=== PATIENT | male | born 1965 | race Caucasian/White ===

== ENCOUNTER 2016-04-21 18:29 | Emergency (ER) | payer SELFPAY ==
[~2016-04-21] VITALS: Ht 177.8 cm; Wt 68.0 kg
[~2016-04-21 18:29] MED LIST: AMOX500T PO; MMW SWISH-SWAL; MOBI7.5T PO; TYLE3 PO
[2016-04-21 18:30] VITALS: BP 190/93; PULSE 86; RESP 15; TEMP 98.2; O2SAT 95
[2016-05-02] MEDS ORDERED: GLIP5TAB8 PO ×2 (12:30→12:31)
[2016-05-02] MEDS ORDERED: CARB6.5S5 LEFT EAR (12:34)
[2016-05-02] MEDS ORDERED: METF1000 PO (12:38)
== END 2016-04-22 02:00 | disposition left against medical advice (07) ==
LOC: NED 18:29
DX: R10.30 Lower abdominal pain, unspecified (principal)
CPT/HCPCS: 99281

== ENCOUNTER 2016-04-22 03:01 | Inpatient (IN) | payer SELFPAY ==
[~2016-04-22] VITALS: Ht 177.8 cm; Wt 64.3 kg
[2016-04-22] VITALS (7 sets, daily range): BP systolic 142–158; BP diastolic 74–87; PULSE 78–93; RESP 17–20; TEMP 97.6–98.7; O2SAT 93–99
[2016-04-22] MEDS ORDERED: SODIUM CHLOR 0.9% 1000 ML INJ 1,000 ML IV SCH (06:33)
--- NOTE | 2016-04-22 06:41 | PD ---
HPI Chief Complaint: Lump, Cyst, Hernia Time Seen by Provider: 06:24 Travel History International Travel<30 days: No Contact w/Intl Traveler<30days: No Traveled to known affect area: No History of Present Illness HPI Patient is a 50-year-old male who presents to emergency room with complaints of left-sided inguinal pain as well as left-sided testicular pain. 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 Patient reports that he has been having increased pain to his left groin. Patient reports that he noticed a bulge to his left groin on Sunday, reports that the bulge is getting bigger in size, reports that it hurts to walk hurts to move with this pain. Patient also reports that his left testicle appears to be growing in size as well. Patient denies any other trauma other than lifting heavy objects. PFSH Past Medical History Diminished Hearing: No Social History Alcohol Use: Yes (OCC) Tobacco Use: Yes (1 PPD ) Substance Use: No Allergies-Medications (Allergen,Severity, Reaction): Coded Allergies: No Known Allergies (Unverified , 09/16/15) Reported Meds & Prescriptions Reported Meds & Active Scripts Active Mobic (Meloxicam) 7.5 Mg Tab 7.5 Mg PO BID Magic Mouthwash-Diphenhy Formula (Lidocaine/Diphenhydr/Alum/Mg/Simeth) Ml 10 Ml SWISH-SWAL Q2HR MAGIC MOUTHWASH CONTAINS 1/3 VISCOUS LIDOCAINE,1/3 MAALOX, AND 1/3 BENADRYL. Reported Amoxil (Amoxicillin) 500 Mg Tab 500 Mg PO BID Tylenol #3 (Acetaminophen/Codeine Phosphate) Acetaminophen 300/30 Codeine Tab 1 Tab PO Q4H PRN FOR PAIN Review of Systems Genitourinary: Positive: Other (groin pain, left sided testicular pain) Physical Exam Narrative GENERAL: nad, nontoxic SKIN: Warm and dry. HEAD: Atraumatic. Normocephalic. EYES: Pupils equal and round. No scleral icterus. No injection or drainage. ENT: No nasal bleeding or discharge. Mucous membranes pink and moist. NECK: Trachea midline. No JVD. CARDIOVASCULAR: Regular rate and rhythm. No murmur appreciated. RESPIRATORY: No accessory muscle use. Clear to auscultation. Breath sounds equal bilaterally. GASTROINTESTINAL: Abdomen soft, non-tender, nondistended. Hepatic and splenic margins not palpable. pt with nonreducible left sided inguinal hernia : pt with tenderness and swelling to left testicle, cremasteric reflex normal b/l, exam performed with RN Sean at bedside MUSCULOSKELETAL: No obvious deformities. No clubbing. No cyanosis. No edema. NEUROLOGICAL: Awake and alert. No obvious cranial nerve deficits. Motor grossly within normal limits. Normal speech. PSYCHIATRIC: Appropriate mood and affect; insight and judgment normal. Data Data Last Documented VS Vital Signs Date Time Temp Pulse Resp B/P Pulse Ox O2 Delivery O2 Flow Rate FiO2 04/22/16 04:50 78 18 04/22/16 03:02 98.7 151/79 99 Orders Complete Blood Count With Diff (04/22/16 06:33) Comprehensive Metabolic Panel (04/22/16 06:33) Prothrombin Time / Inr (Pt) (04/22/16 06:33) Act Partial Throm Time (Ptt) (04/22/16 06:33) Urinalysis - C+S If Indicated (04/22/16 06:33) Ct Abd/Pel W Iv Contrast(Rout) (04/22/16 06:33) Iv Access Insert/Monitor (04/22/16 06:33) Oximetry (04/22/16 06:33) Morphine Inj (Morphine Inj) (04/22/16 06:45) Ondansetron Inj (Zofran Inj) (04/22/16 06:45) Sodium Chlor 0.9% 1000 Ml Inj (Ns 1000 M (04/22/16 06:33) Sodium Chloride 0.9% Flush (Ns Flush) (04/22/16 06:45) Us Testicles W Doppler (04/22/16 ) Urine Culture (04/22/16 06:50) Sodium Chlor 0.9% 1000 Ml Inj (Ns 1000 M (04/22/16 08:00) Labs Laboratory Tests Test 04/22/16 06:50 White Blood Count 22.9 TH/MM3 Red Blood Count 4.77 MIL/MM3 Hemoglobin 14.3 GM/DL Hematocrit 41.3 % Mean Corpuscular Volume 86.7 FL Mean Corpuscular Hemoglobin 29.9 PG Mean Corpuscular Hemoglobin 34.5 % Concent Red Cell Distribution Width 14.0 % Platelet Count 265 TH/MM3 Mean Platelet Volume 9.2 FL Neutrophils (%) (Auto) 81.7 % Lymphocytes (%) (Auto) 8.6 % Monocytes (%) (Auto) 7.8 % Eosinophils (%) (Auto) 0.9 % Basophils (%) (Auto) 1.0 % Neutrophils # (Auto) 18.7 TH/MM3 Lymphocytes # (Auto) 2.0 TH/MM3 Monocytes # (Auto) 1.8 TH/MM3 Eosinophils # (Auto) 0.2 TH/MM3 Basophils # (Auto) 0.2 TH/MM3 CBC Comment DIFF FINAL Differential Comment Prothrombin Time 10.5 SEC Prothromb Time International 1.0 RATIO Ratio Activated Partial 34.0 SEC Thromboplast Time Urine Color YELLOW Urine Turbidity HAZY Urine pH 6.0 Urine Specific [place] 1.016 Urine Protein 300 mg/dL Urine Glucose (UA) 1000 mg/dL Urine Ketones 40 mg/dL Urine Occult Blood MOD Urine Nitrite NEG Urine Bilirubin NEG Urine Urobilinogen LESS THAN 2.0 MG/DL Urine Leukocyte Esterase LARGE Urine RBC 12 /hpf Urine WBC 181 /hpf Urine WBC Clumps FEW Urine Squamous Epithelial <1 /hpf Cells Urine Bacteria FEW /hpf Urine Hyaline Casts 1 /lpf Urine Mucus FEW /lpf Microscopic Urinalysis Comment CULTURE INDICATED Sodium Level 133 MEQ/L Potassium Level 4.0 MEQ/L Chloride Level 99 MEQ/L Carbon Dioxide Level 23.9 MEQ/L Anion Gap 10 MEQ/L Blood Urea Nitrogen 15 MG/DL Creatinine 1.20 MG/DL Estimat Glomerular Filtration 64 ML/MIN Rate Random Glucose 231 MG/DL Calcium Level 9.2 MG/DL Total Bilirubin 0.4 MG/DL Aspartate Amino Transf 9 U/L (AST/SGOT) Alanine Aminotransferase 15 U/L (ALT/SGPT) Alkaline Phosphatase 171 U/L Total Protein 7.3 GM/DL Albumin 2.4 GM/DL MDM Medical Decision Making Medical Screen Exam Complete: Yes Emergency Medical Condition: Yes Interpretation(s) Vital Signs Date Time Temp Pulse Resp B/P Pulse Ox O2 Delivery O2 Flow Rate FiO2 04/22/16 04:50 78 18 04/22/16 03:02 98.7 90 17 151/79 99 Differential Diagnosis Incarcerated inguinal hernia, testicular torsion, epididymitis Narrative Course Patient is a 50-year-old male who presents to ER with c/o of left sided groin pain since sunday. pt with left sided inguinal hernia - unable to reduce this hernia at bedside. iv ordered as well as iv pain meds. will try to reduce hernia once pt medicated. ct ordered to evaluate hernia. pt also with left sided testicular pain and swelling, testicular US ordered pt with wbc 22.9, lactate, bc and antibiotics ordered for pt Beth Hensley DO Apr 22, 2016 06:41
[2016-04-22] MEDS ORDERED: MORPHINE SULFATE 4 MG/ML INJ IV PUSH ONE (06:45)
[2016-04-22] MEDS ORDERED: ONDANSETRON HCL 4 MG/2 ML VIAL IVP ONE (06:45)
[2016-04-22] MEDS ORDERED: SODIUM CHLORIDE 0.9% FLUSH 5 ML FLUSH IVF PRN (06:45)
[2016-04-22 07:24] LABS: AUTOMATED NEUTROPHIL # 18.7 TH/MM3 (1.8-7.7); BASOPHIL # 0.2 TH/MM3 (0-0.2); EOSINOPHIL # 0.2 TH/MM3 (0-0.4); EOSINOPHIL % 0.9 % (0.0-4.0); HEMATOCRIT 41.3 % (39.0-51.0); HEMO FLAGS DIFF FINAL; LYMPH % 8.6 % (9.0-44.0); MEAN CELL VOLUME 86.7 FL (80.0-100.0); MEAN CORPUSCULAR HEMOGLOBIN 29.9 PG (27.0-34.0); MEAN CORPUSCULAR HGB CONC 34.5 % (32.0-36.0); MONO % 7.8 % (0.0-8.0); NEUT % 81.7 % (16.0-70.0); PLATELET COUNT 265 TH/MM3 (150-450); RED BLOOD COUNT 4.77 MIL/MM3 (4.50-5.90); WHITE BLOOD COUNT 22.9 TH/MM3 (4.0-11.0)
[2016-04-22 07:30] LABS: PROTHROMBIN TIME - PATIENT 10.5 SEC (9.8-11.6)
[2016-04-22 07:35] LABS: ALT (GPT) 15 U/L (12-78); ANION GAP 10 MEQ/L (5-15); AST (GOT) 9 U/L (15-37); BICARBONATE 23.9 MEQ/L (21.0-32.0); BLOOD UREA NITROGEN 15 MG/DL (7-18); CHLORIDE 99 MEQ/L (98-107); GLOMERULAR FILTRATION RATE 64 ML/MIN (>89); SODIUM (NA) 133 MEQ/L (136-145)
[2016-04-22 07:36] LABS: ALKALINE PHOSPHATASE 171 U/L (45-117); TOTAL BILIRUBIN ADULT 0.4 MG/DL (0.2-1.0)
[2016-04-22 07:41] LABS: BACTERIA, URINE FEW /hpf; BLOOD, URINE MOD (NEG); COMMENT (UR) CULTURE INDICATED; CULTURE IF INDICATED CULTURE INDICATED; GLUCOSE,URINE 1000 mg/dL (NEG); HYALINE CAST, URINE 1 /lpf (RARE); KETONE, URINE 40 mg/dL (NEG); MUCUS URINE FEW /lpf (OCC); NITRITE,URINE NEG (NEG); SQUAMOUS EPITHELIAL CELL URINE <1 /hpf (0-5); URINE COLOR YELLOW (YELLW/STRAW)
[2016-04-22] MEDS ORDERED: PIPERACIL-TAZO 3.375 GM PREMIX 50 ML IV ONE (08:00)
[2016-04-22] MEDS ORDERED: VANCOMYCIN INJ 1,000 MG in SODIUM CHLOR 0.9% 250 ML INJ 250 ML IV ONE (08:00)
[2016-04-22] MEDS ORDERED: SODIUM CHLOR 0.9% 1000 ML INJ 1,000 ML IV ONE (08:00)
[2016-04-22] MEDS ORDERED: IOHEXOL 350 MG/ML 10 ML VIAL (for RAD DIAG) IV ONE (08:33)
--- NOTE | 2016-04-22 09:03 | RADRPT ---
EXAM DATE/TIME: 04/22/2016 08:15 [facility] COMPARISON: No previous studies available for comparison. INDICATIONS : Abdomen pain into feft groin; evaluate for hernia. IV CONTRAST: 100 cc Omnipaque 350 (iohexol) IV ORAL CONTRAST: No oral contrast ingested. RADIATION DOSE: 9.96 CTDIvol (mGy) MEDICAL HISTORY : None SURGICAL HISTORY : None. ENCOUNTER: Initial ACUITY: 1 day PAIN SCALE: 6/10 LOCATION: Left abdomen. TECHNIQUE: Volumetric scanning of the abdomen and pelvis was performed. Using automated exposure control and ad justment of the mA and/or kV according to patient size, radiation dose was kept as low as reasonably achievable to obtain optimal diagnostic quality images. FINDINGS: Lung base is are clear. The liver, spleen, pancreas and adrenal glands are unremarkable. There is symmetrical renal function without renal mass. Region of the cecum and terminal ileum unremarkable. There some mild inflammatory changes in the sigmoid colon and appears to be associated with some dive rticuli. Small left inguinal hernia containing only fat. The left seminal vesicle is prominent. There is minimal soft tissue base of the bladder left side, n onspecific. Small bilateral hydroceles are noted. Review of bone windows reveals only degenerative changes. CONCLUSION: 1. Probable minimal diverticulitis sigmoid colon associate with small inguinal hernia. 2. Prominent left seminal vesicle. 3. Small bilateral hydroceles. Giovanny Glass MD FACR on April 22, 2016 at 8:57 Board Certified Radiologist. This report was verified electronically.
--- NOTE | 2016-04-22 09:13 | PD ---
Data Data Last Documented VS Vital Signs Date Time Temp Pulse Resp B/P Pulse Ox O2 Delivery O2 Flow Rate FiO2 04/22/16 07:06 20 04/22/16 04:50 78 04/22/16 03:02 98.7 151/79 99 Orders Complete Blood Count With Diff (04/22/16 06:33) Comprehensive Metabolic Panel (04/22/16 06:33) Prothrombin Time / Inr (Pt) (04/22/16 06:33) Act Partial Throm Time (Ptt) (04/22/16 06:33) Urinalysis - C+S If Indicated (04/22/16 06:33) Ct Abd/Pel W Iv Contrast(Rout) (04/22/16 06:33) Iv Access Insert/Monitor (04/22/16 06:33) Oximetry (04/22/16 06:33) Morphine Inj (Morphine Inj) (04/22/16 06:45) Ondansetron Inj (Zofran Inj) (04/22/16 06:45) Sodium Chlor 0.9% 1000 Ml Inj (Ns 1000 M (04/22/16 06:33) Sodium Chloride 0.9% Flush (Ns Flush) (04/22/16 06:45) Us Testicles W Doppler (04/22/16 ) Urine Culture (04/22/16 06:50) Sodium Chlor 0.9% 1000 Ml Inj (Ns 1000 M (04/22/16 08:00) Lactic Acid Sepsis Protocol (04/22/16 07:56) Blood Culture (04/22/16 07:56) Piperacil-Tazo 3.375 Gm Premix (Zosyn 3. (04/22/16 08:00) Vancomycin Inj (Vancomycin Inj) (04/22/16 08:00) Iohexol 350 Inj (Omnipaque 350 Inj) (04/22/16 08:33) Diet Regular Basic (04/22/16 Breakfast) Hydromorphone Pf Inj (Dilaudid Pf Inj) (04/22/16 09:45) Admit Order (Ed Use Only) (04/22/16 09:56) Labs Laboratory Tests Test 04/22/16 04/22/16 06:50 08:45 White Blood Count 22.9 TH/MM3 Red Blood Count 4.77 MIL/MM3 Hemoglobin 14.3 GM/DL Hematocrit 41.3 % Mean Corpuscular Volume 86.7 FL Mean Corpuscular Hemoglobin 29.9 PG Mean Corpuscular Hemoglobin 34.5 % Concent Red Cell Distribution Width 14.0 % Platelet Count 265 TH/MM3 Mean Platelet Volume 9.2 FL Neutrophils (%) (Auto) 81.7 % Lymphocytes (%) (Auto) 8.6 % Monocytes (%) (Auto) 7.8 % Eosinophils (%) (Auto) 0.9 % Basophils (%) (Auto) 1.0 % Neutrophils # (Auto) 18.7 TH/MM3 Lymphocytes # (Auto) 2.0 TH/MM3 Monocytes # (Auto) 1.8 TH/MM3 Eosinophils # (Auto) 0.2 TH/MM3 Basophils # (Auto) 0.2 TH/MM3 CBC Comment DIFF FINAL Differential Comment Prothrombin Time 10.5 SEC Prothromb Time International 1.0 RATIO Ratio Activated Partial 34.0 SEC Thromboplast Time Urine Color YELLOW Urine Turbidity HAZY Urine pH 6.0 Urine Specific [place] 1.016 Urine Protein 300 mg/dL Urine Glucose (UA) 1000 mg/dL Urine Ketones 40 mg/dL Urine Occult Blood MOD Urine Nitrite NEG Urine Bilirubin NEG Urine Urobilinogen LESS THAN 2.0 MG/DL Urine Leukocyte Esterase LARGE Urine RBC 12 /hpf Urine WBC 181 /hpf Urine WBC Clumps FEW Urine Squamous Epithelial <1 /hpf Cells Urine Bacteria FEW /hpf Urine Hyaline Casts 1 /lpf Urine Mucus FEW /lpf Microscopic Urinalysis Comment CULTURE INDICATED Sodium Level 133 MEQ/L Potassium Level 4.0 MEQ/L Chloride Level 99 MEQ/L Carbon Dioxide Level 23.9 MEQ/L Anion Gap 10 MEQ/L Blood Urea Nitrogen 15 MG/DL Creatinine 1.20 MG/DL Estimat Glomerular Filtration 64 ML/MIN Rate Random Glucose 231 MG/DL Calcium Level 9.2 MG/DL Total Bilirubin 0.4 MG/DL Aspartate Amino Transf 9 U/L (AST/SGOT) Alanine Aminotransferase 15 U/L (ALT/SGPT) Alkaline Phosphatase 171 U/L Total Protein 7.3 GM/DL Albumin 2.4 GM/DL Lactic Acid Level 0.8 mmol/L [facility] Supervised Visit with PACO: No Narrative Course Patient signed out to me by previous provider. Please see associated note for further details. In short patient is a 50-year-old male who complains of left- sided inguinal pain, abdominal pain, testicular pain. 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 This has increased in size, hurts to move and radiates into the abdomen and testicle. Per previous provider , patient has a fair amount of tenderness to palpation in the left groin with palpable hernia that she did not feel she successfully reduced. Concern for incarcerated hernia. Per previous provider patient's laboratory workup with CBC , CMP, coags, urinalysis notable for leukocytosis 22.9. Urinalysis with large leukocyte Estrace, 181 white cells with white cell clumps. Patient was treated per previous provider with vancomycin, Zosyn. Given patient's leukocytosis, lactate and cultures were ordered as well. 1 L normal saline bolus and signed out to me pending CT abdomen and pelvis and ultrasound of the testis. CT abdomen and pelvis didn't not show any evidence of incarcerated hernia. Patient's hernia containing fat only. There is diverticulitis of the sigmoid colon associated with a small inguinal hernia. Prominent left seminal vesicle. Small bilateral hydroceles. Radiology does not comment on radiographic evidence of pyelonephritis, stating that there is symmetrical renal function without mass. Lactate normal. Testicular ultrasound showed complex hydrocele on the left with a varicocele. Mild hyperemia on the left as well. Knowing the hyperemia, tenderness to palpation, and left-sided testicular pain I suspect there may be a component of epididymal orchitis because of his urinalysis. Patient still quite uncomfortable on examination, requiring repeat narcotics. Patient will be admitted for further IV antibiotics. Sepsis Criteria SIRS Criteria (2 or more): WBC > 71316, < 4000 or > 10% bands Sepsis Criteria (SIRS+source): Infect source susp/known Diagnosis Primary Impression: Sigmoid diverticulitis Additional Impressions: Left inguinal hernia Leukocytosis Qualified Code: D72.829 - Leukocytosis, unspecified type Abdominal pain, left lower quadrant Epididymoorchitis Admitting Information Admitting Physician Requests: Admit Kristen Wallace MD Apr 22, 2016 09:13
--- NOTE | 2016-04-22 09:22 | RADRPT ---
EXAM DATE/TIME: 04/22/2016 07:10 [facility] COMPARISON: No previous studies available for comparison. INDICATIONS : Pain in left groin after heavy lifting. MEDICAL HISTORY : Groin pain. Joint pain. SURGICAL HISTORY : None. ENCOUNTER: Initial ACUITY: 4 - 6 days PAIN SCORE: 1/10 LOCATION: Left groin. MEASUREMENTS: RIGHT TESTICLE: 3.9 x 2.9 x 2.3cm LEFT TESTICLE: 3.6 x 3.3 x 2.3cm FINDINGS: RIGHT TESTICLE: Homogeneous echotexture without intra or extratesticular mass. Blood flow is symmetric and within no rmal limits. No hydrocele or varicocele. Epididymis is within normal limits. LEFT TESTICLE: There is mildly increased flow in the left testicle with several small epididymal cysts noted. There is minimal inhomogeneity to the left testicle in nonspecific fashion. There is prominent hydrocele present. Varicocele is noted. SCROTUM: Scrotum is thickened on the left with complex hydrocele. CONCLUSION: Complex hydrocele on the left with apparent varicocele. Mild hyperemia on the left a s well. Giovanny Glass MD FACR on April 22, 2016 at 9:15 Board Certified Radiologist. This report was verified electronically.
[2016-04-22] MEDS ORDERED: HYDROmorphone HCL PF 1 MG/ML VIAL IV PUSH ONE (09:45)
[2016-04-22] MEDS ORDERED: ZOLPIDEM TARTRATE 5 MG TAB PO PRN (10:15)
[2016-04-22] MEDS ORDERED: MORPHINE SULFATE 4 MG/ML INJ IV PRN (10:15)
[2016-04-22] MEDS ORDERED: SENNOSIDES 8.6 MG TAB PO PRN (10:15)
[2016-04-22] MEDS ORDERED: ONDANSETRON HCL 4 MG/2 ML VIAL IVP PRN (10:15)
[2016-04-22] MEDS ORDERED: SODIUM CHLORIDE 0.9% FLUSH 5 ML FLUSH FLUSH PRN (10:15)
[2016-04-22] MEDS ORDERED: NALOXONE HCL 0.4 MG/ML AMP IV PRN (10:15)
[2016-04-22] MEDS ORDERED: ACETAMINOPHEN 325 MG TAB PO PRN ×2 (10:15)
[2016-04-22] MEDS: DOCUSATE SODIUM 100 MG CAP PO SCH ×2 (11:08→21:21)
[2016-04-22] MEDS: SODIUM CHLOR 0.9% 1000 ML INJ 1,000 ML IV SCH ×2 (11:09→20:08)
[2016-04-22] MEDS: metroNIDAZOLE 500 MG INJ 100 ML IV SCH ×2 (12:35→17:09)
[2016-04-22] MEDS: CIPROFLOXACIN 400 MG PREMIX 200 ML IV SCH ×2 (13:16→23:09)
--- NOTE | 2016-04-22 14:32 | HHI.HP ---
[facility] Primary [facility] Physician No Primary Care Physician Admission Diagnosis epididymal orchitis, diverticulitis, abdominal pain Diagnoses: (1) Epididymoorchitis Diagnosis: Principal (2) Sigmoid diverticulitis Diagnosis: Principal Chief Complaint: Scrotal pain Travel History International Travel<30 Days: No Contact w/Intl Traveler <30 Da: No Traveled to Known Affected Are: No Sepsis Criteria SIRS Criteria (2 or more): WBC > 68062, < 4000 or > 10% bands Sepsis Criteria (SIRS+source): Infect source susp/known History of Present Illness The patient is a 50-year-old male who is presenting to the hospital with severe pain in the scrotal area. 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 He said that he noticed a bulge above his genital area. He also noticed that his left testicle became bigger and tender. He said it was quite painful. He thought that he got a hernia. He said he tried to go back to work but he had to take a few days off. The pain was rated as a 9 out of 10 in severity. Whenever he coughed the pain would be a lot worse. He tried coping with the pain by taking aspirin and Advil but that did not help relieve his symptoms. He has felt feverish at times. He denies any nausea or vomiting. He did notice that he lost his appetite. He denies any pain on urination or any blood in the urine. He has not traveled anywhere recently. He says he has not had any sexual activity in the past year. After receiving pain medications in the emergency department he rates his pain as a 6 out of 10 in severity. Review of Systems Constitutional: COMPLAINS OF: Fever, Change in appetite Respiratory: COMPLAINS OF: Cough Gastrointestinal: COMPLAINS OF: Vomiting, DENIES: Abdominal pain, Nausea Genitourinary: COMPLAINS OF: Testicular Pain, Testicular Swelling, DENIES: Hematuria, Dysuria Past Family Social History Past Medical History The patient denies any significant medical history. Past Surgical History The patient denies any surgery. Allergies: Coded Allergies: No Known Allergies (Unverified , 09/16/15) Active Ordered Medications Current Medications Medications (Trade) Dose Ordered Sig/Piero Route Start Time Stop Time Status Last Admin Ciprofloxacin/ Dextrose 200 ml @ 200 mls/hr Q12H IV 04/22/16 11:00 04/22/16 13:16 Metronidazole 100 ml @ 100 mls/hr Q8H IV 04/22/16 10:15 04/22/16 12:35 (NS 1000 ml Inj) 1,000 ml @ 100 mls/hr Q10H IV 04/22/16 10:08 04/22/16 11:09 (NS Flush) 2 ml UNSCH PRN FLUSH 04/22/16 10:15 (NS Flush) 2 ml BID FLUSH 04/22/16 21:00 (Tylenol) 650 mg Q4H PRN PO 04/22/16 10:15 (Zofran Inj) 4 mg Q6H PRN IVP 04/22/16 10:15 (Colace) 100 mg Q12H PO 04/22/16 10:15 04/22/16 11:08 (Senokot) 17.2 mg Q12H PRN PO 04/22/16 10:15 (Ambien) 5 mg HS PRN PO 04/22/16 10:15 (Tylenol) 650 mg Q6H PRN PO 04/22/16 10:15 (Roxicodone) 10 mg Q4H PRN PO 04/22/16 10:15 04/22/16 13:28 (Morphine Inj) 4 mg Q3H PRN IV 04/22/16 10:15 (Roxicodone) 5 mg Q4H PRN PO 04/22/16 10:15 (Narcan Inj) 0.4 mg UNSCH PRN IV 04/22/16 10:15 Family History The patient says cancer runs in his family. Social History The patient smoked one pack per day but quit this past New Year's. The patient says he drinks a couple of beers a day but since New Year's he has been working on cutting that down. He denies any illicit drug use. Physical Exam Vital Signs Vital Signs Date Time Temp Pulse Resp B/P Pulse Ox O2 Delivery O2 Flow Rate FiO2 04/22/16 10:13 82 20 148/74 98 Room Air 04/22/16 07:06 20 04/22/16 07:00 82 20 142/78 98 Room Air 04/22/16 07:00 20 93 Room Air 04/22/16 04:50 78 18 04/22/16 03:02 98.7 90 17 151/79 99 Physical Exam GENERAL: Resting comfortably in bed. SKIN: Warm and dry. HEAD: Atraumatic. Normocephalic. EYES: Pupils equal and round. No scleral icterus. No injection or drainage. ENT: No nasal bleeding or discharge. Mucous membranes pink and moist. NECK: Trachea midline. No JVD. CARDIOVASCULAR: Regular rate and rhythm. No murmur appreciated. RESPIRATORY: No accessory muscle use. Clear to auscultation. Breath sounds equal bilaterally. GASTROINTESTINAL: Abdomen soft, non-tender, nondistended. Hepatic and splenic margins not palpable. : Tenderness, firmness and swelling to left testicle, along with small inguinal hernia. MUSCULOSKELETAL: No obvious deformities. No clubbing. No cyanosis. No edema. NEUROLOGICAL: Awake and alert. No obvious cranial nerve deficits. Motor grossly within normal limits. Normal speech. PSYCHIATRIC: Appropriate mood and affect; insight and judgment normal. Laboratory Laboratory Tests Test 04/22/16 04/22/16 06:50 08:45 White Blood Count 22.9 Red Blood Count 4.77 Hemoglobin 14.3 Hematocrit 41.3 Mean Corpuscular Volume 86.7 Mean Corpuscular Hemoglobin 29.9 Mean Corpuscular Hemoglobin 34.5 Concent Red Cell Distribution Width 14.0 Platelet Count 265 Mean Platelet Volume 9.2 Neutrophils (%) (Auto) 81.7 Lymphocytes (%) (Auto) 8.6 Monocytes (%) (Auto) 7.8 Eosinophils (%) (Auto) 0.9 Basophils (%) (Auto) 1.0 Neutrophils # (Auto) 18.7 Lymphocytes # (Auto) 2.0 Monocytes # (Auto) 1.8 Eosinophils # (Auto) 0.2 Basophils # (Auto) 0.2 CBC Comment DIFF FINAL Differential Comment Prothrombin Time 10.5 Prothromb Time International 1.0 Ratio Activated Partial 34.0 Thromboplast Time Urine Color YELLOW Urine Turbidity HAZY Urine pH 6.0 Urine Specific [place] 1.016 Urine Protein 300 Urine Glucose (UA) 1000 Urine Ketones 40 Urine Occult Blood MOD Urine Nitrite NEG Urine Bilirubin NEG Urine Urobilinogen LESS THAN 2.0 Urine Leukocyte Esterase LARGE Urine RBC 12 Urine WBC 181 Urine WBC Clumps FEW Urine Squamous Epithelial <1 Cells Urine Bacteria FEW Urine Hyaline Casts 1 Urine Mucus FEW Microscopic Urinalysis Comment CULTURE INDICATED Sodium Level 133 Potassium Level 4.0 Chloride Level 99 Carbon Dioxide Level 23.9 Anion Gap 10 Blood Urea Nitrogen 15 Creatinine 1.20 Estimat Glomerular Filtration 64 Rate Random Glucose 231 Calcium Level 9.2 Total Bilirubin 0.4 Aspartate Amino Transf 9 (AST/SGOT) Alanine Aminotransferase 15 (ALT/SGPT) Alkaline Phosphatase 171 Total Protein 7.3 Albumin 2.4 Lactic Acid Level 0.8 Date/Time Procedure Status Source Growth 04/22/16 08:45 Aerobic Blood Culture Received Blood Peripheral Pending 04/22/16 08:45 Anaerobic Blood Culture Received Blood Peripheral Pending 04/22/16 06:50 Urine Culture Received Urine Clean Catch Pending Result Diagram: 04/22/16 0650 04/22/16 0650 Imaging Last Impressions Abdomen/Pelvis CT 04/22/16 0633 Signed Impressions: Service Date/Time: Friday, April 22, 2016 08:15 - CONCLUSION: 1. Probable minimal diverticulitis sigmoid colon associate with small inguinal hernia. 2. Prominent left seminal vesicle. 3. Small bilateral hydroceles. Giovanny Glass MD FACR Scrotum Ultrasound 04/22/16 0000 Signed Impressions: Service Date/Time: Friday, April 22, 2016 07:10 - CONCLUSION: Complex hydrocele on the left with apparent varicocele. Mild hyperemia on the left as well. Giovanny Glass MD FACR Assessment and Plan Assessment and Plan Epididymoorchitis The patient presents with an enlarged, tender and firm left testicle with suprapubic fullness. Scrotal ultrasound showed: Complex hydrocele on the left with apparent varicocele; Mild hyperemia on the left as well. Likely from a GI source as the patient seems to have a mild diverticulitis. - Continue ciprofloxacin and Flagyl. - Pain control with a bowel regimen. - Urology consultation has been requested. Acute diverticulitis CT scan showed: Probable minimal diverticulitis of the sigmoid colon associated with a small inguinal hernia; Prominent left seminal vesicle; Small bilateral hydroceles. - antibiotics as above. - IVFs. UTI S/t above. - follow culture. Continue antibiotics. Hyperglycemia May be a stress reaction. No history of diabetes. Significant amount of glucose noted in UA. - check a HgbA1c level. - follow BMP. Nicotine/ alcohol use The pt says he has not smoked or had a drink since new years. - encourage cessation. PPx: SCDs. Code Status Full. Discussed Condition With Dr. Wallace, nurse, pt. Physician Certification 2 Midnight Certification Type: Admission for Inpatient Services Order for Inpatient Services The services are ordered in accordance with Medicare regulations or non- Medicare payer requirements, as applicable. In the case of services not specified as inpatient-only, they are appropriately provided as inpatient services in accordance with the 2-midnight benchmark. Estimated LOS (days): 2 days is the estimated time the patient will need to remain in the hospital, assuming treatment plan goals are met and no additional complications. Post-Hospital Plan: Home Junior Mathew DO Apr 22, 2016 14:32
--- NOTE | 2016-04-22 19:15 | PD.CONS ---
HPI Service Urology Consult Requested By Dr. Mathew. Reason for Consult Painful, epididymis, hydrocele. hernia,left side. Primary Care Physician No Primary Care Physician Diagnosis: (1) Epididymoorchitis ICD Code: N45.3 (2) Sigmoid diverticulitis ICD Code: K57.32 History of Present Illness ER, admitting H&Ps reviewed. Pain left groin started at work after lifting heavy object 3 days ago. Pain became worse next day. No associated back pains. Then he noticed swelling left scrotum and groin. Testicular US: Hyperemia left epididymis with small hydrocele. CT scan: left inquinal hernia containing fat. Hernia unable to be reduced by ER doctors, including Dr. Wallace. Past Family Social History Past Medical History EMR reviewed. Diabetes. Past Surgical History EMR reviewed. 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 Physical Exam Vital Signs Vital Signs Date Time Temp Pulse Resp B/P Pulse Ox O2 Delivery O2 Flow Rate FiO2 04/22/16 16:30 97.6 91 18 142/87 97 04/22/16 15:57 80 20 143/74 97 04/22/16 12:00 78 20 155/87 98 04/22/16 10:13 82 20 148/74 98 Room Air 04/22/16 07:06 20 04/22/16 07:00 82 20 142/78 98 Room Air 04/22/16 07:00 20 93 Room Air 04/22/16 04:50 78 18 04/22/16 03:02 98.7 90 17 151/79 99 Physical Exam GENERAL: This is a well-nourished, well-developed patient, in no apparent distress. SKIN: No rashes, ecchymoses or lesions. Cool and dry. HEAD: Atraumatic. Normocephalic. No temporal or scalp tenderness. EYES: Pupils equal round and reactive. Extraocular motions intact. No scleral icterus. No injection or drainage. ENT: Nose without bleeding, purulent drainage or septal hematoma. Throat without erythema, tonsillar hypertrophy or exudate. Uvula midline. Airway patent. NECK: Trachea midline. No JVD or lymphadenopathy. Supple, nontender, no meningeal signs. CARDIOVASCULAR: Regular rate and rhythm without murmurs, gallops, or rubs. RESPIRATORY: Clear to auscultation. Breath sounds equal bilaterally. No wheezes , rales, or rhonchi. GASTROINTESTINAL: Abdomen soft, non-tender, nondistended. No hepato-splenomegaly , or palpable masses. No guarding. MUSCULOSKELETAL: Extremities without clubbing, cyanosis, or edema. No joint tenderness, effusion, or edema noted. No calf tenderness. Negative Homans sign bilaterally. NEUROLOGICAL: Awake and alert. Cranial nerves II through XII intact. Motor and sensory grossly within normal limits. Five out of 5 muscle strength in all muscle groups. Normal speech. : Scrotal: Left: Skin thickened posteriorly and adherent to epididymis which is enlarged and hard and tender. Testicle is negative. Spermatic cord is thickened, firm, and tender. Cannot distinguish a varicocele. Can feel a minor hydrocele. Right: testicle, cord both negative. Groin: Tender swelling compatible with hernia. Cannot fully examine due to degree of tenderness. Laboratory Laboratory Tests Test 04/22/16 04/22/16 06:50 08:45 White Blood Count 22.9 Red Blood Count 4.77 Hemoglobin 14.3 Hematocrit 41.3 Mean Corpuscular Volume 86.7 Mean Corpuscular Hemoglobin 29.9 Mean Corpuscular Hemoglobin 34.5 Concent Red Cell Distribution Width 14.0 Platelet Count 265 Mean Platelet Volume 9.2 Neutrophils (%) (Auto) 81.7 Lymphocytes (%) (Auto) 8.6 Monocytes (%) (Auto) 7.8 Eosinophils (%) (Auto) 0.9 Basophils (%) (Auto) 1.0 Neutrophils # (Auto) 18.7 Lymphocytes # (Auto) 2.0 Monocytes # (Auto) 1.8 Eosinophils # (Auto) 0.2 Basophils # (Auto) 0.2 CBC Comment DIFF FINAL Differential Comment Prothrombin Time 10.5 Prothromb Time International 1.0 Ratio Activated Partial 34.0 Thromboplast Time Urine Color YELLOW Urine Turbidity HAZY Urine pH 6.0 Urine Specific [place] 1.016 Urine Protein 300 Urine Glucose (UA) 1000 Urine Ketones 40 Urine Occult Blood MOD Urine Nitrite NEG Urine Bilirubin NEG Urine Urobilinogen LESS THAN 2.0 Urine Leukocyte Esterase LARGE Urine RBC 12 Urine WBC 181 Urine WBC Clumps FEW Urine Squamous Epithelial <1 Cells Urine Bacteria FEW Urine Hyaline Casts 1 Urine Mucus FEW Microscopic Urinalysis Comment CULTURE INDICATED Sodium Level 133 Potassium Level 4.0 Chloride Level 99 Carbon Dioxide Level 23.9 Anion Gap 10 Blood Urea Nitrogen 15 Creatinine 1.20 Estimat Glomerular Filtration 64 Rate Random Glucose 231 Calcium Level 9.2 Total Bilirubin 0.4 Aspartate Amino Transf 9 (AST/SGOT) Alanine Aminotransferase 15 (ALT/SGPT) Alkaline Phosphatase 171 Total Protein 7.3 Albumin 2.4 Lactic Acid Level 0.8 Date/Time Procedure Status Source Growth 04/22/16 08:45 Aerobic Blood Culture Received Blood Peripheral Pending 04/22/16 08:45 Anaerobic Blood Culture Received Blood Peripheral Pending 04/22/16 06:50 Urine Culture Received Urine Clean Catch Pending Result Diagram: 04/22/16 0650 04/22/16 0650 Imaging Testicular US and CT scan images and reports both personally reviewed. See HPI for description. Assessment and Plan Problem List: (1) Epididymoorchitis ICD Code: N45.3 Status: Acute Assessment and Plan: History and PE both compatible with acute process. Rx with antibiotics. Could easily have been due to the heavy lifting by causing reflux of fluid into the epididymis. Spermatic cord is definitely swollen and tender: this process may extend into the left inquinal ring increasing the groin swelling and tenderness and making the hernia appear to be tender and possibly incarcerated. The hydrocele on left is probably secondary to the epididymitis and can be ignored. (2) Left inguinal hernia ICD Code: K40.90 Status: Acute Assessment and Plan: May be chronic. May not be the cause of the pain and tenderness. Am ordering Gen. Surgery Consult on outside chance it is incarcerated. The tenderness and swelling may actually be increased by the swollen spermatic cord. (See above). Assessment and Plan See above. Discussed Condition With Patient. Nurse. Jc Joe MD Apr 22, 2016 19:15
[2016-04-22] MEDS: SODIUM CHLORIDE 0.9% FLUSH 5 ML FLUSH FLUSH SCH (21:00)
[2016-04-23] VITALS: BP 162/86; PULSE 93; RESP 17; TEMP 97.9; O2SAT 97
[2016-04-23] MEDS: metroNIDAZOLE 500 MG INJ 100 ML IV SCH ×3 (02:30→19:54)
[2016-04-23 04:00] VITALS: BP 155/84; PULSE 88; RESP 17; TEMP 97.4; O2SAT 96
[2016-04-23 07:43] LABS: AUTOMATED NEUTROPHIL # 20.4 TH/MM3 (1.8-7.7); BASOPHIL # 0.1 TH/MM3 (0-0.2); BASOPHIL % 0.4 % (0.0-2.0); EOSINOPHIL # 0.4 TH/MM3 (0-0.4); EOSINOPHIL % 1.6 % (0.0-4.0); HEMATOCRIT 39.3 % (39.0-51.0); LYMPH % 6.5 % (9.0-44.0); LYMPHOCYTE # 1.6 TH/MM3 (1.0-4.8); MEAN CELL VOLUME 88.9 FL (80.0-100.0); MEAN CORPUSCULAR HGB CONC 32.6 % (32.0-36.0); MONO % 10.7 % (0.0-8.0); NEUT % 80.8 % (16.0-70.0); PLATELET COUNT 267 TH/MM3 (150-450); RED BLOOD COUNT 4.42 MIL/MM3 (4.50-5.90); WHITE BLOOD COUNT 25.2 TH/MM3 (4.0-11.0)
[2016-04-23 07:50] VITALS: BP 157/78; PULSE 89; RESP 20; TEMP 98.5; O2SAT 95
[2016-04-23 08:04] LABS: BICARBONATE 21.6 MEQ/L (21.0-32.0); POTASSIUM 3.7 MEQ/L (3.5-5.1)
[2016-04-23 08:15] LABS: HEMO FLAGS AUTO DIFF
[2016-04-23] MEDS: SODIUM CHLORIDE 0.9% FLUSH 5 ML FLUSH FLUSH SCH ×2 (09:00→20:28)
[2016-04-23 09:33] LABS: PLATELET ESTIMATE SMEAR NORMAL (NORMAL); PLATELET MORPHOLOGY NORMAL (NORMAL); SCAN/DIFF AUTO DIFF CONFIRMED
[2016-04-23] MEDS: DOCUSATE SODIUM 100 MG CAP PO SCH ×2 (09:45→21:28)
--- NOTE | 2016-04-23 10:26 | MB ---
cc: LETTY,LANG CUMMINGS MD DATE OF CONSULTATION: 04/22/2016 REASON FOR CONSULTATION: Left inguinal hernia. CONSULTING PHYSICIAN Dr. Blackwell HISTORY OF PRESENT ILLNESS This is a 50-year-old male who presents with left inguinal and scrotal pain. 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 He is unsure which area was worse or developed first. The patient had to go home from work and he was basically bedridden for and Sunday with quite severe pain in the left groin. He has never had pain like this in the past. The patient does not know if he had a hernia before but he does state once he thinks he noticed a bulge in the left groin. The patient was noted on emergency room evaluation he had tenderness and swelling of the left testicle as well as a nonreducible inguinal hernia. White blood count was noted to be 23,000 and on ultrasound of the scrotum he had some abnormalities of the left testicle. A CT of the abdomen and pelvis was performed with concern for possible diverticulitis and prominent left seminal vesicle. On exam by Dr. Blackwell of urology, the patient was felt to have epididymal orchitis possibly exacerbating pain from a chronic left inguinal hernia. I have been asked to see the patient for further recommendations. PAST MEDICAL HISTORY The patient denies. PAST SURGICAL HISTORY None. ALLERGIES: No known allergies. SOCIAL HISTORY He just recently quit smoking one pack a day. He drinks beer occasionally. 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 FAMILY HISTORY Noncontributory. REVIEW OF SYSTEMS The patient denies fever and chills. Otherwise 10-point review of systems is negative except as mentioned in the HPI. PHYSICAL EXAMINATION General: Thin, middle-aged male not in distress, pleasant and cooperative. Vital signs: Temperature is 98.5, heart rate 89, respirations 20, blood pressure 157/78, 95% saturation on room air. Head: Normocephalic, atraumatic. Lungs: Clear to auscultation bilaterally. Cardiovascular: Regular rate and rhythm. Abdomen: Soft, nontender, nondistended. : He has edema, tenderness and firmness of the left cynthia scrotum. He has edema and tenderness of the entire spermatic cord at the superior aspect of the cynthia scrotum and into the inguinal canal. The tenderness continues through the inguinal canal. This area is all firm. It cannot be reduced. Skin: Warm, dry, nonjaundiced. Extremities: No cyanosis or edema. ASSESSMENT The patient is a 50-year-old male with epididymal orchitis and left inguinal hernia. I agree with Dr. Blackwell that the patient probably has acute epididymo-orchitis superimposed on a chronic left inguinal hernia which has increased the pain from the inguinal hernia due to edema. It is unclear if the patient has mild diverticulitis which caused the problem or a issue only. Regardless, I would recommend continued appropriate treatment for epididymo-orchitis and probably a week course or so of appropriate coverage for diverticultis. I definitely would not recommend surgical intervention for inguinal hernia at this time. On exam and imaging, the hernia does not appear to contain bowel and is fat containing only. There would be a high-risk of infection with mesh if repair was attempted. The acute process needs to have been fully resolved and hernia repair can be addressed at that time. I will be happy to see the patient as an outpatient when the process has resolved. I gave him my card, discussed my recommendations with him and he understands. MD ANNETTE Reid/MANOJ /9:20 AM /9:39 AM DOLORES
[2016-04-23 11:50] VITALS: BP 181/87; PULSE 91; RESP 20; TEMP 97.9; O2SAT 93
[2016-04-23 12:43] LABS: HEMOGLOBIN Ao 76.8 %; HEMOGLOBIN F 2.8 %; HEMOGLOBIN LA1C 2.2 %; HEMOGLOBIN P3 4.7 %
[2016-04-23 12:47] LABS: HEMOGLOBIN A1a 1.7 %
[2016-04-23] MEDS: CIPROFLOXACIN 400 MG PREMIX 200 ML IV SCH ×2 (13:11→22:35)
[2016-04-23] MEDS: SODIUM CHLOR 0.9% 1000 ML INJ 1,000 ML IV SCH (13:11)
[2016-04-23] MEDS ORDERED: Vancomycin Consult Pharmacy 1 EA OTHER SCH (14:00)
--- NOTE | 2016-04-23 14:11 | HHI.PR ---
Subjective Remarks The patient explained that he had significant pain in his left testicle. He was wondering how much longer he would have to be in the hospital for. He said he never knew he had diabetes. Objective Vitals Vital Signs Date Time Temp Pulse Resp B/P Pulse Ox O2 Delivery O2 Flow Rate FiO2 04/23/16 11:50 97.9 91 20 181/87 93 04/23/16 07:50 98.5 89 20 157/78 95 04/23/16 04:00 97.4 88 17 155/84 96 04/23/16 00:00 97.9 93 17 162/86 97 04/22/16 20:00 97.6 93 18 158/84 98 04/22/16 16:30 97.6 91 18 142/87 97 04/22/16 15:57 80 20 143/74 97 I/O 04/22/16 04/22/16 04/22/16 04/23/16 04/23/16 04/23/16 06:59 14:59 22:59 06:59 14:59 22:59 Intake Total 480 ml 2584 ml Balance 480 ml 2584 ml Intake Oral 480 ml 480 ml IV Total 2104 ml # Voids 3 2 Result Diagram: 04/23/16 0541 04/23/16 0541 Imaging Last Impressions Abdomen/Pelvis CT 04/22/16 0633 Signed Impressions: Service Date/Time: Friday, April 22, 2016 08:15 - CONCLUSION: 1. Probable minimal diverticulitis sigmoid colon associate with small inguinal hernia. 2. Prominent left seminal vesicle. 3. Small bilateral hydroceles. Giovanny Glass MD FACR Scrotum Ultrasound 04/22/16 0000 Signed Impressions: Service Date/Time: Friday, April 22, 2016 07:10 - CONCLUSION: Complex hydrocele on the left with apparent varicocele. Mild hyperemia on the left as well. Giovanny Glass MD FACR Objective Remarks GENERAL: Appears uncomfortable. SKIN: Warm and dry. HEAD: Atraumatic. Normocephalic. EYES: Pupils equal and round. No scleral icterus. No injection or drainage. ENT: No nasal bleeding or discharge. Mucous membranes pink and moist. NECK: Trachea midline. No JVD. CARDIOVASCULAR: Regular rate and rhythm. No murmur appreciated. RESPIRATORY: No accessory muscle use. Clear to auscultation. Breath sounds equal bilaterally. GASTROINTESTINAL: Abdomen soft, non-tender, nondistended. Hepatic and splenic margins not palpable. : Tenderness, firmness, erythema and swelling to left testicle, along with small inguinal hernia. MUSCULOSKELETAL: No obvious deformities. No clubbing. No cyanosis. No edema. NEUROLOGICAL: Awake and alert. No obvious cranial nerve deficits. Motor grossly within normal limits. Normal speech. PSYCHIATRIC: Appropriate mood and affect; insight and judgment normal. Medications and IVs Current Medications Medications (Trade) Dose Ordered Sig/Piero Route Start Time Stop Time Status Last Admin Ciprofloxacin/ Dextrose 200 ml @ 200 mls/hr Q12H IV 04/22/16 11:00 04/23/16 13:11 Metronidazole 100 ml @ 100 mls/hr Q8H IV 04/22/16 10:15 04/23/16 09:47 (NS 1000 ml Inj) 1,000 ml @ 100 mls/hr Q10H IV 04/22/16 10:08 04/23/16 13:11 (NS Flush) 2 ml UNSCH PRN FLUSH 04/22/16 10:15 (NS Flush) 2 ml BID FLUSH 04/22/16 21:00 (Tylenol) 650 mg Q4H PRN PO 04/22/16 10:15 (Zofran Inj) 4 mg Q6H PRN IVP 04/22/16 10:15 (Colace) 100 mg Q12H PO 04/22/16 10:15 04/23/16 09:45 (Senokot) 17.2 mg Q12H PRN PO 04/22/16 10:15 (Ambien) 5 mg HS PRN PO 04/22/16 10:15 (Tylenol) 650 mg Q6H PRN PO 04/22/16 10:15 (Roxicodone) 10 mg Q4H PRN PO 04/22/16 10:15 04/23/16 09:45 (Morphine Inj) 4 mg Q3H PRN IV 04/22/16 10:15 (Roxicodone) 5 mg Q4H PRN PO 04/22/16 10:15 (Narcan Inj) 0.4 mg UNSCH PRN IV 04/22/16 10:15 Insulin Detemir 10 units 10 units HS SQ 04/23/16 21:00 Pharmacy Profile Note 0 ml @ 0 mls/hr UNSCH OTHER 04/23/16 14:00 (Vancomycin Inj/ NS 250 ml Inj) 250 ml @ 250 mls/hr Q12H IV 04/23/16 14:00 UNV A/P Problem List: (1) Epididymoorchitis ICD Code: N45.3 Status: Acute (2) Sigmoid diverticulitis ICD Code: K57.32 Status: Acute Assessment and Plan Epididymoorchitis The patient presents with an enlarged, tender and firm left testicle with suprapubic fullness. Scrotal ultrasound showed: Complex hydrocele on the left with apparent varicocele; Mild hyperemia on the left as well. Likely from a GI source as the patient seems to have a mild diverticulitis. Appreciate urology consult. Urine culture growing staph aureus. - Continue ciprofloxacin and Flagyl. Add vancomycin 04/23. - Pain control with a bowel regimen. Increase pain meds 04/23. - follow up with urology. Hernia/ acute diverticulitis CT scan showed: Probable minimal diverticulitis of the sigmoid colon associated with a small inguinal hernia; Prominent left seminal vesicle; Small bilateral hydroceles. Appreciate surgical consult. - antibiotics as above. - IVFs. - outpt follow-up with general surgery for hernia if needed. UTI Urine culture growing staph aureus. - Continue antibiotics. Diabetes Significant amount of glucose noted in UA. A1c over 10%. - insulin sliding scale with 10 units Levemir HS. - software educator consult. - diabetic diet. Nicotine/ alcohol use The pt says he has not smoked or had a drink since new years. - encourage cessation. PPx: SCDs. Discharge Planning Awaiting clinical improvement. Junior Mathew DO Apr 23, 2016 14:11
[2016-04-23] MEDS ORDERED: HYDROmorphone HCL PF 1 MG/ML VIAL IV PUSH PRN (14:15)
[2016-04-23] MEDS ORDERED: HYDROmorphone HCL PF 1 MG/ML VIAL IV PUSH ONE (14:15)
[2016-04-23] MEDS: KETOROLAC TROMETHAMINE 30 MG/ML (IVP) VIAL IV PUSH SCH ×2 (14:52→19:55)
[2016-04-23 15:00] VITALS: BP 156/75; PULSE 95; RESP 20; TEMP 98.4; O2SAT 92
--- NOTE | 2016-04-23 15:05 | HHI.PR ---
Subjective Remarks "Worse" Gen. Surgery Consult by Dr. Kerr reviewed. Hernia is not a factor . Objective Vital Signs Vital Signs Date Time Temp Pulse Resp B/P Pulse Ox O2 Delivery O2 Flow Rate FiO2 04/23/16 11:50 97.9 91 20 181/87 93 04/23/16 07:50 98.5 89 20 157/78 95 04/23/16 04:00 97.4 88 17 155/84 96 04/23/16 00:00 97.9 93 17 162/86 97 04/22/16 20:00 97.6 93 18 158/84 98 04/22/16 16:30 97.6 91 18 142/87 97 04/22/16 15:57 80 20 143/74 97 I/O 04/22/16 04/22/16 04/22/16 04/23/16 04/23/16 04/23/16 07:00 15:00 23:00 07:00 15:00 23:00 Intake Total 480 ml 2584 ml Balance 480 ml 2584 ml Intake Oral 480 ml 480 ml IV Total 2104 ml # Voids 3 2 Result Diagram: 04/23/16 0541 04/23/16 0541 Imaging Testicular US and CT scan images and reports both personally reviewed. See HPI for description. Objective Remarks 04-23-16: Left scrotum, testicle, epididymis, spermatic cord: larger and more tender than last night, skin slightly redder and now becoming adherent anteriorly. Urine C&S: Staph. Vancomycin added to Rx by Dr. Mathew. Assessment and Plan Problem List: (1) Epididymoorchitis ICD Code: N45.3 Status: Acute Assessment and Plan: 04-22-16: History and PE both compatible with acute process. Rx with antibiotics. Could easily have been due to the heavy lifting by causing reflux of fluid into the epididymis. Spermatic cord is definitely swollen and tender: this process may extend into the left inquinal ring increasing the groin swelling and tenderness and making the hernia appear to be tender and possibly incarcerated. The hydrocele on left is probably secondary to the epididymitis and can be ignored. 04-23-16: Acute cwcropqnupvi-Fxrodzzr-fcepkza-prostatitis clinically progressing as is expected at this time. Rxing the Staph should result in gradual reduction in the pain and tenderness and WBC. Dr. Mathew will add an anti-inflammatory (Toradol) and begin Rx of his new Dx of DM. REC: Keep in hospital for sepsis. DC on antibiotics, analgesics, anti-inflammatories when pain and tenderness start to subside. F/U [facility]: Drs. Angel, and Amadou. [phone]. (2) Left inguinal hernia ICD Code: K40.90 Status: Acute Assessment and Plan: 04-22-16: May be chronic. May not be the cause of the pain and tenderness. Am ordering Gen. Surgery Consult on outside chance it is incarcerated. The tenderness and swelling may actually be increased by the swollen spermatic cord. (See above). 04-23-16: Gen. Surgery consult by Dr. Kerr reviewed. Hernia not a problem. Assessment and Plan See above. Discharge Planning F/U Urology. Jc Joe MD Apr 23, 2016 15:05
[2016-04-23] MEDS: VANCOMYCIN INJ 1,000 MG in SODIUM CHLOR 0.9% 250 ML INJ 250 ML IV SCH (17:08)
[2016-04-23] MEDS: INSULIN ASPART SUPPLEMENTAL SCALE SQ SCH ×2 (17:14→21:28)
[2016-04-23 20:00] VITALS: BP 155/81; PULSE 89; RESP 18; TEMP 96.8; O2SAT 98
[2016-04-23] MEDS ORDERED: INSULIN DETEMIR 100 UNITS/ML VIAL SQ SCH (21:00)
[2016-04-24] VITALS: BP 134/74; PULSE 89; RESP 17; TEMP 98; O2SAT 98
[2016-04-24] MEDS: KETOROLAC TROMETHAMINE 30 MG/ML (IVP) VIAL IV PUSH SCH ×2 (00:36→05:55)
[2016-04-24] MEDS: metroNIDAZOLE 500 MG INJ 100 ML IV SCH (02:01)
[2016-04-24] MEDS: VANCOMYCIN INJ 1,000 MG in SODIUM CHLOR 0.9% 250 ML INJ 250 ML IV SCH (03:20)
[2016-04-24 04:00] VITALS: BP 132/74; PULSE 86; RESP 18; TEMP 97.6; O2SAT 97
[2016-04-24] MEDS: INSULIN ASPART SUPPLEMENTAL SCALE SQ SCH (06:00)
[2016-04-24 07:13] LABS: HEMATOCRIT 35.9 % (39.0-51.0); MEAN CELL VOLUME 86.5 FL (80.0-100.0); MEAN CORPUSCULAR HEMOGLOBIN 28.5 PG (27.0-34.0); MEAN CORPUSCULAR HGB CONC 32.9 % (32.0-36.0); PLATELET COUNT 258 TH/MM3 (150-450); RED BLOOD COUNT 4.15 MIL/MM3 (4.50-5.90); RED CELL DISTRIBUTION WIDTH 13.8 % (11.6-17.2); REVIEW FLAG FINAL; WHITE BLOOD COUNT 22.1 TH/MM3 (4.0-11.0)
[2016-04-24 07:36] LABS: MAGNESIUM 1.7 MG/DL (1.5-2.5); POTASSIUM 3.6 MEQ/L (3.5-5.1)
[2016-04-24 08:00] VITALS: BP 166/96; PULSE 92; RESP 16; TEMP 98.2; O2SAT 91
[2016-04-24] MEDS: DOCUSATE SODIUM 100 MG CAP PO SCH (08:17)
[2016-04-24] MEDS: SODIUM CHLORIDE 0.9% FLUSH 5 ML FLUSH FLUSH SCH (08:17)
[2016-04-24] MEDS: SODIUM CHLOR 0.9% 1000 ML INJ 1,000 ML IV SCH (08:19)
[2016-04-24] MEDS ORDERED: SENNOSIDES 8.6 MG TAB PO SCH (09:00)
[2016-04-24] MEDS ORDERED: LEVA750T PO (10:43)
[2016-04-24] MEDS ORDERED: BLOOD GLUCOSE M1 KIT (10:43)
[2016-04-24] MEDS ORDERED: NOVONP2 SQ (10:43)
[2016-04-24] MEDS ORDERED: CLIN1CAP5 PO (10:43)
[2016-04-24] MEDS ORDERED: LACTTAB8 PO (10:43)
--- NOTE | 2016-04-24 10:45 | HHI.DCPOC ---
Discharge Care Plan Diagnosis: (1) Diabetes mellitus (2) Epididymoorchitis (3) Left inguinal hernia (4) Leukocytosis (5) HTN (hypertension) Goals to Promote Your Health * To prevent worsening of your condition and complications * To maintain your health at the optimal level Directions to Meet Your Goals Take your medications as prescribed Follow your dietary instruction Follow activity as directed Keep your appointments as scheduled Take your immunizations and boosters as scheduled If your symptoms worsen call your PCP, if no PCP go to Urgent Care Center or Emergency Room Smoking is Dangerous to Your Health. Avoid second hand smoke Call the 24-hour hour crisis hotline for domestic abuse at Junior Mathew DO Apr 24, 2016 10:45
[2016-04-24] MEDS ORDERED: BLOOD GLUCOSE T1 TES (10:48)
--- NOTE | 2016-04-24 11:00 | HHI.DS ---
Discharge Summary Admission Date Apr 22, 2016 at 09:58 Discharge Date: Apr 24, 2016 Admitting Diagnosis epididymal orchitis, diverticulitis, abdominal pain (1) Epididymoorchitis ICD Code: N45.3 Diagnosis: Principal (2) HTN (hypertension) ICD Code: I10 (3) Diabetes mellitus ICD Code: E11.9 (4) Left inguinal hernia ICD Code: K40.90 Procedures None Brief History - From Admission The patient is a 50-year-old male who is presenting to the hospital with severe pain in the scrotal area. 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 He said that he noticed a bulge above his genital area. He also noticed that his left testicle became bigger and tender. He said it was quite painful. He thought that he got a hernia. He said he tried to go back to work but he had to take a few days off. The pain was rated as a 9 out of 10 in severity. Whenever he coughed the pain would be a lot worse. He tried coping with the pain by taking aspirin and Advil but that did not help relieve his symptoms. He has felt feverish at times. He denies any nausea or vomiting. He did notice that he lost his appetite. He denies any pain on urination or any blood in the urine. He has not traveled anywhere recently. He says he has not had any sexual activity in the past year. After receiving pain medications in the emergency department he rates his pain as a 6 out of 10 in severity. CBC/BMP: 04/24/16 0551 04/24/16 0551 Significant Findings Laboratory Tests Test 04/22/16 04/23/16 04/24/16 06:50 05:41 05:51 Activated Partial 34.0 SEC Thromboplast Time (24.3-30.1) Sodium Level 133 MEQ/L 135 MEQ/L (136-145) (136-145) Estimat Glomerular Filtration 64 ML/MIN (>89) 71 ML/MIN (>89) 51 ML/MIN (>89) Rate Random Glucose 231 MG/DL 216 MG/DL 156 MG/DL (74-106) (74-106) (74-106) Aspartate Amino Transf 9 U/L (15-37) (AST/SGOT) Alkaline Phosphatase 171 U/L (45-117) Albumin 2.4 GM/DL (3.4-5.0) White Blood Count 22.9 TH/MM3 25.2 TH/MM3 22.1 TH/MM3 (4.0-11.0) (4.0-11.0) (4.0-11.0) Neutrophils (%) (Auto) 81.7 % 80.8 % (16.0-70.0) (16.0-70.0) Lymphocytes (%) (Auto) 8.6 % 6.5 % (9.0-44.0) (9.0-44.0) Neutrophils # (Auto) 18.7 TH/MM3 20.4 TH/MM3 (1.8-7.7) (1.8-7.7) Monocytes # (Auto) 1.8 TH/MM3 2.7 TH/MM3 (0-0.9) (0-0.9) Urine Turbidity HAZY (CLEAR) Urine Protein 300 mg/dL (NEG-TRACE) Urine Glucose (UA) 1000 mg/dL (NEG) Urine Ketones 40 mg/dL (NEG) Urine Occult Blood MOD (NEG) Urine Leukocyte Esterase LARGE (NEG) Urine RBC 12 /hpf (0-3) Urine WBC 181 /hpf (0-5) Urine WBC Clumps FEW (NONE) Urine Bacteria FEW /hpf (NONE) Urine Mucus FEW /lpf (OCC) Hemoglobin A1c 10.6 % (4.3-6.0) Red Blood Count 4.42 MIL/MM3 4.15 MIL/MM3 (4.50-5.90) (4.50-5.90) Hemoglobin 12.8 GM/DL 11.8 GM/DL (13.0-17.0) (13.0-17.0) Monocytes (%) (Auto) 10.7 % (0.0-8.0) Calcium Level 7.8 MG/DL 7.8 MG/DL (8.5-10.1) (8.5-10.1) Hematocrit 35.9 % (39.0-51.0) Carbon Dioxide Level 20.0 MEQ/L (21.0-32.0) Creatinine 1.46 MG/DL (0.60-1.30) Imaging Last Impressions Abdomen/Pelvis CT 04/22/16 0633 Signed Impressions: Service Date/Time: Friday, April 22, 2016 08:15 - CONCLUSION: 1. Probable minimal diverticulitis sigmoid colon associate with small inguinal hernia. 2. Prominent left seminal vesicle. 3. Small bilateral hydroceles. Giovanny Glass MD FACR Scrotum Ultrasound 04/22/16 0000 Signed Impressions: Service Date/Time: Friday, April 22, 2016 07:10 - CONCLUSION: Complex hydrocele on the left with apparent varicocele. Mild hyperemia on the left as well. Giovanny Glass MD FACR PE at Discharge GENERAL: Resting comfortably. SKIN: Warm and dry. HEAD: Atraumatic. Normocephalic. EYES: Pupils equal and round. No scleral icterus. No injection or drainage. ENT: No nasal bleeding or discharge. Mucous membranes pink and moist. NECK: Trachea midline. No JVD. CARDIOVASCULAR: Regular rate and rhythm. No murmur appreciated. RESPIRATORY: No accessory muscle use. Clear to auscultation. Breath sounds equal bilaterally. GASTROINTESTINAL: Abdomen soft, non-tender, nondistended. Hepatic and splenic margins not palpable. : Firmness, erythema and swelling to left testicle are improved. No tenderness to palpation. Small inguinal hernia. MUSCULOSKELETAL: No obvious deformities. No clubbing. No cyanosis. No edema. NEUROLOGICAL: Awake and alert. No obvious cranial nerve deficits. Motor grossly within normal limits. Normal speech. PSYCHIATRIC: Anxious. Pt update on day of discharge The patient said that he had 0 pain and no problems urinating. He really wanted to be discharged from the hospital. He said he would follow up with urology. He said that he would stick around to get diabetic education and he said he would use insulin as an outpatient. Discussed with nursing. Hospital Course Epididymoorchitis The patient presented with an enlarged, tender and firm left testicle with suprapubic fullness. Scrotal ultrasound showed: Complex hydrocele on the left with apparent varicocele; Mild hyperemia on the left as well. Urology was consulted. Urine culture growing staph aureus. The patient was continued on vancomycin, ciprofloxacin and Flagyl. He received pain control with a bowel regimen. Symptoms resolved on the day of discharge. He will complete a course of Cipro and clindamycin. The patient will follow up with urology. He was told to return to the emergency department if he develops fever, increased pain or difficulty urinating. Hernia/ acute diverticulitis CT scan showed: Probable minimal diverticulitis of the sigmoid colon associated with a small inguinal hernia; Prominent left seminal vesicle; Small bilateral hydroceles. Surgery was consulted. No indication for surgery at this time. He will have outpt follow-up with general surgery if needed. He will continue antibiotics as above. UTI Urine culture growing staph aureus. He'll be discharged on clindamycin and will follow up with urology as an outpatient. Diabetes Significant amount of glucose noted in UA. A1c over 10%. informatics educator consult was requested. He was started on a diabetic diet. He was placed on an insulin sliding scale with 10 units Levemir HS. he will be discharged on 15 units of NPH daily. He will have insulin teaching prior to discharge. He will follow up with his primary care doctor. Nicotine/ alcohol use The pt says he has not smoked or had a drink since new years. We encouraged cessation. Acute renal injury Creatinine has been increasing. Toradol was discontinued. The patient received IV fluids. He will have a follow-up BMP in 3-5 days. He will follow- up with urology. Pt Condition on Discharge: Stable Discharge Disposition: Discharge Home Discharge Time: > 30 minutes Discharge Instructions DIET: Follow Instructions for: Diabetic Diet Activities you can perform: Weight Bearing as See Follow up Referrals: PCP Follow-up - 1 Week Urology - 1 Week with Rashel Angel MD New Orders: BASIC METABOLIC PROF - 3-5 Days New Medications: Blood Glucose Monitoring W/Device (Blood Glucose Monitoring W/Device) 1 Kit Kit 1 KIT .ROUTE DIRECTED Blood Sugar Management #1 Ref 0 KIT Blood Glucose Test Strips (Blood Glucose Test Strips) 1 Seble Seble 1 EA .ROUTE DIRECTED Blood Sugar Management #1 Ref 0 BOX Ciprofloxacin (Ciprofloxacin) 500 Mg Tab 500 MG PO BID Infection #14 Ref 0 TAB Clindamycin (Clindamycin) 150 Mg Cap 450 MG PO Q6H Infection #28 Ref 0 CAP Insulin Human NPH Inj (Novolin N Inj) 1,000 Unit/10 Ml Vial 15 UNITS SQ DAILY Blood Sugar Management #10 Ref 0 ML Lactobacillus Acidophilus (Lactobacillus Acidophilus) 1 Tab Tab 1 TAB PO TIDAC Nutritional Supplement #21 Ref 0 TAB Continued Medications: () 10 ML SWISH-SWAL Q2HR MAGIC MOUTHWASH CONTAINS 1/3 VISCOUS LIDOCAINE,1/3 MAALOX , AND 1/3 BENADRYL. #120 Ref 4 ML Discontinued Medications: Acetaminophen/Codeine (Tylenol #3) Acetaminophen 300/30 Codeine Tab 1 TAB PO Q4H FOR PAIN PRN PAIN TAB Amoxicillin (Amoxil) 500 Mg Tab 500 MG PO BID TAB Meloxicam (Mobic) 7.5 Mg Tab 7.5 MG PO BID #60 TAB Junior Mathew DO Apr 24, 2016 11:00
[2016-04-24] MEDS ORDERED: CIPR500T2 PO (11:01)
--- NOTE | 2016-04-24 12:26 | HHI.FF ---
Face to Face Verification Diagnosis: (1) Diabetes mellitus (2) Epididymoorchitis (3) Left inguinal hernia Home Health Nursing Order: Medical education Signs/symptoms of disease process Diabetic education Medication education-adverse effect Nursing assessment with vital signs I have seen patient Roseann Walters on 04/24/16. My clinical findings support the need for the requested home health care services because: Deconditioned w/ increased weakness Med compliance is questionable Limited ability to care for self I certify that my clinical findings support that this patient is homebound because: Unsafe to leave home unassisted Junior Mathew DO Apr 24, 2016 12:26
[2016-04-24] MEDS ORDERED: PHARMACY ORDERED LAB XX ONE (14:45)
[2016-05-02] MEDS ORDERED: GLIP5TAB8 PO ×2 (12:30→12:31)
[2016-05-02] MEDS ORDERED: CARB6.5S5 LEFT EAR (12:34)
[2016-05-02] MEDS ORDERED: METF1000 PO (12:38)
== END 2016-04-24 12:41 | disposition home or self-care (01) | DRG 728 ==
LOC: NEPE 03:01 → NEDA 09:58 → HOCA 16:20
PROVIDERS: ADMIT Hospitalist; ATTEND Hospitalist
DX: N45.3 Epididymo-orchitis (principal); N17.9 Acute kidney failure, unspecified; E11.65 Type 2 diabetes mellitus with hyperglycemia; K57.32 Diverticulitis of large intestine without perforation or abscess without bleeding; N39.0 Urinary tract infection, site not specified; B95.61 Methicillin susceptible Staphylococcus aureus infection as the cause of diseases classified elsewhere; I10 Essential (primary) hypertension; N43.3 Hydrocele, unspecified; I86.1 Scrotal varices; K40.90 Unilateral inguinal hernia, without obstruction or gangrene, not specified as recurrent; Z87.891 Personal history of nicotine dependence
CPT/HCPCS: 74177; 76870; 80048; 80053; 81001; 82948; 83036; 83605; 83735; 85025; 85027; 85610; 85730; 86403; 87040; 87086; 87147; 87186; 93975; 96361; 96365; 96375; J0744; J1170; J1815; J1885; J2270; J2405; J2543; J3370; J7030; J7050; Q9967